=== PATIENT | female | born 1995 | race Caucasian/White ===

== ENCOUNTER 2017-05-06 17:44 | Emergency (ER) | payer SELFPAY ==
[2017-05-06] MEDS ORDERED: Morphine INJ* 4 MG/ML 1 ML SYRINGE IV ONE (18:19)
[2017-05-06] MEDS ORDERED: Ondansetron INJ* 2 MG/ML VIAL IV ONE (18:19)
[2017-05-06] MEDS ORDERED: NS 0.9% 1000 ML* 1,000 ML IV ONE (18:19)
[2017-05-06 18:49] LABS: Hematocrit 36 % (35-47); Mean Corpuscular HGB Conc 33 g/dl (31-36); Mean Corpuscular Hemoglobin 28 pg (27-31); Mean Corpuscular Volume 85 fL (80-97); Mean Platelet Volume 10 um3 (7.4-10.4); Red Blood Count 4.25 10^6/ul (4.0-5.4); Red Cell Distribution Width 14 % (10.5-15); White Blood Count 9.9 10^3/ul (3.5-10.8)
--- NOTE | 2017-05-06 19:07 | RAD ---
Indication: Right wrist pain 3 views of the wrist demonstrates fracture of the distal radius metaphysis. Slight dorsal angulation is noted. Fracture of the ulnar styloid process is noted. IMPRESSION: Fracture of the distal radius and ulnar styloid process with dorsal angulation.
[2017-05-06 19:15] LABS: ALT 12 U/L (7-52); AST 18 U/L (13-39); Albumin 3.9 g/dL (3.2-5.2); Alkaline Phosphatase 39 U/L (34-104); Anion Gap 9 mmol/L (2-11); BUN/Creatinine Ratio 12.9 (8-20); Blood Urea Nitrogen 8 mg/dL (6-24); CO2 Carbon Dioxide 22 mmol/L (22-32); Chloride 105 mmol/L (101-111); EGFR African American 159.5 (>60); Globulin 3.6 g/dL (2-4); Glucose 81 mg/dL (70-100); Lipase 14 U/L (11.0-82.0); Potassium 3.5 mmol/L (3.5-5.0); Sodium 136 mmol/L (133-145); Total Protein 7.5 g/dL (6.4-8.9)
[2017-05-06 19:39] LABS: Urine Bilirubin Negative (Negative); Urine Glucose Negative (Negative); Urine Nitrite Negative (Negative)
[2017-05-06] MEDS ORDERED: Iohexol 300* (CONTRAST) 10 ML SDV IV ONE (19:46)
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
[2017-05-06] MEDS ORDERED: Diazepam TAB(*) 5 MG PO ONE (20:36)
[2017-05-06] MEDS ORDERED: Ketorolac INJ* 30 MG/ML 1 ML VIAL IV PUSH ONE (20:36)
[2017-05-06] MEDS ORDERED: Ondansetron ODT TAB* 4 MG PO ONE (21:54)
[2017-05-06] MEDS ORDERED: oxyCODONE/Acetamin 5/325 MG* TAB PO ONE (21:55)
[2017-05-06 23:14] VITALS: BP 110/75
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
== END 2017-05-06 23:15 | disposition home or self-care (01) ==
LOC: ED 17:44
DX: S62.101A Fracture of unspecified carpal bone, right wrist, initial encounter for closed fracture (principal); S61.011A Laceration without foreign body of right thumb without damage to nail, initial encounter; R10.9 Unspecified abdominal pain; M25.531 Pain in right wrist; V49.9XXA Car occupant (driver) (passenger) injured in unspecified traffic accident, initial encounter; Y93.9 Activity, unspecified; Y92.9 Unspecified place or not applicable
CPT/HCPCS: 12002; 36415; 70450; 71260; 72125; 74177; 80053; 81003; 83690; 84702; 85025; 85610; 85730; 96374; 96375; 99282; A9270-GY; J1885; J2270; J2405; Q9967

== ENCOUNTER 2017-11-08 09:41 | Emergency (ER) | payer OTHER ==
[2017-11-08 09:52] VITALS: BP 114/72
--- NOTE | 2017-11-08 10:04 | UC ---
Abdominal Pain Female HPI - HPI Summary HPI Summary: left upper and now right lower abdpain---worsens after she eats---has been going on now for 6-7 days no fevers, no urinary sx, not like any stomach ache she has ever had before - History of Current Complaint Chief Complaint: UCAbdominalPain Stated Complaint: ABD PAIN Time Seen by Provider: 11/08/17 09:53 Hx Obtained From: Patient Hx Last Menstrual Period: iud ?: No Onset/Duration: Sudden Onset, Lasting Days - 7, Still Present Timing: Constant Severity Initially: Moderate Severity Currently: Moderate Location: Discrete At: RLQ, Discrete At: LUQ Radiates: No Character: Sharp Aggravating Factor(s): Food Alleviating Factor(s): Nothing Associated Signs and Symptoms: Positive: Nausea, Diarrhea Allergies/Adverse Reactions: Allergies Allergy/AdvReac Type Severity Reaction Status Date / Time No Known Allergies Allergy Verified 11/08/17 09:48 Home Medications: Home Medications NK [No Home Medications Reported] 11/08/17 [History Confirmed 11/08/17] PMH/Surg Hx/FS Hx/Imm Hx Previously Healthy: Yes - Surgical History Surgical History: None - Family History Known Family History: Positive: Cardiac Disease - Social History Occupation: Student Lives: With Family Alcohol Use: None Substance Use Type: Marijuana Smoking Status (MU): Never Smoked Tobacco Review of Systems Constitutional: Negative, Fatigue Skin: Negative Eyes: Negative ENT: Negative Respiratory: Negative Cardiovascular: Negative Gastrointestinal: Abdominal Pain, Diarrhea, Nausea Genitourinary: Negative Motor: Negative Neurovascular: Negative Musculoskeletal: Negative Neurological: Negative Psychological: Negative Is Patient Immunocompromised?: No All Other Systems Reviewed And Are Negative: Yes Physical Exam Triage Information Reviewed: Yes Appearance: Well-Appearing, No Pain Distress, Well-Nourished Vital Signs: Initial Vital Signs Temp 98 F 11/08/17 09:49 Pulse 101 11/08/17 09:49 Resp 20 11/08/17 09:49 BP 114/72 11/08/17 09:49 Pulse Ox 100 11/08/17 09:49 Vital Signs Reviewed: Yes Eye Exam: Normal Eyes: Positive: Conjunctiva Clear ENT Exam: Normal ENT: Positive: Normal ENT inspection, Hearing grossly normal, Pharynx normal, Nasal congestion, TMs normal, Uvula midline. Negative: Tonsillar swelling, Tonsillar exudate, Trismus, Muffled voice, Hoarse voice, Dental tenderness, Sinus tenderness Dental Exam: Normal Neck exam: Normal Neck: Positive: Supple, Nontender, No Lymphadenopathy Respiratory Exam: Normal Respiratory: Positive: Chest non-tender, Lungs clear, Normal breath sounds, No respiratory distress, No accessory muscle use Cardiovascular Exam: Normal Cardiovascular: Positive: RRR, No Murmur, Pulses Normal, Brisk Capillary Refill Abdominal Exam: Other Abdomen Description: Positive: No Organomegaly, Soft, McBurney's Point Tenderness, Peritoneal Signs, Other: - luq pain. Negative: CVA Tenderness (R), CVA Tenderness (L), Guarding Bowel Sounds: Positive: Present Musculoskeletal Exam: Normal Musculoskeletal: Positive: Strength Intact, ROM Intact, No Edema Neurological Exam: Normal Neurological: Positive: Alert, Muscle Tone Normal Psychological Exam: Normal Skin Exam: Normal Abd Pain Female Course/Dx - Course Course Of Treatment: npo transfer by private car to [facility] [place] for comprehensive abd.pain evaluation - Differential Dx/Diagnosis Provider Diagnoses: Acute Abdomen pain Discharge - Discharge Plan Condition: Stable Disposition: OTHER Discharge Disposition Comment: [facility] [place] Patient Education Materials: Abdominal Pain (ED) Referrals: Susan Bryson MD [Primary Care Provider] - Additional Instructions: Please report directly to the emergency department for comprehensive evaluation of your abdomen pain. Please do not have any thing else to eat or drink until evaluated by the emergency department provider
== END 2017-11-08 10:10 ==
LOC: UCEAST 09:41
DX: R10.31 Right lower quadrant pain (principal); R10.12 Left upper quadrant pain; R11.0 Nausea; R19.7 Diarrhea, unspecified; F12.90 Cannabis use, unspecified, uncomplicated
CPT/HCPCS: 99211; G0463

== ENCOUNTER 2017-11-08 10:29 | Day surgery (SDC) | payer OTHER ==
[2017-11-08 10:51] LABS: ABS Basophils 0.1 10^3/ul (0-0.2); ABS Eosinophils 0.1 10^3/ul (0-0.6); ABS Lymphocytes 2.2 10^3/ul (1.0-4.8); ABS Monocytes 0.6 10^3/ul (0-0.8); ABS Neutrophils 3.3 10^3/ul (1.5-7.7); ABS Nucleated RBC 0 10^3/ul; Eosinophil % 1.8 % (0-6); Hematocrit 39 % (35-47); Hemoglobin 13.1 g/dl (12.0-16.0); Lymphocyte % 35.2 % (25-47); Mean Corpuscular HGB Conc 34 g/dl (31-36); Mean Corpuscular Hemoglobin 29 pg (27-31); Mean Corpuscular Volume 85 fL (80-97); Mean Platelet Volume 9 um3 (7.4-10.4); Nucleated Red Blood Cells % 0.1; Platelet Count 232 10^3/ul (150-450); Red Blood Count 4.59 10^6/ul (4.0-5.4); Red Cell Distribution Width 14 % (10.5-15); White Blood Count 6.3 10^3/ul (3.5-10.8)
--- NOTE | 2017-11-08 11:13 | ED ---
Abdominal Pain/Female - HPI Summary HPI Summary: 22 female presents to ED accompanied by mother with complaints of abdominal pain that has been ongoing for the past week. Patient states she has noticed it to get much worse after eating or drinking. States pain is in the upper abdomen as long as the RLQ. Diffuse at times. Patient tried taking pepto bismal without relief. States it keeps her up at night. Describes pain to be sharp and shooting , constant and lasting for minutes to hours, ranging every time. Patient denies ever having pain like this in the past. No correlation to specific types of foods/drinks. Denies vaginal bleeding, discharge and odor. Denies urinary symptoms. Normal bowel movements. States she feels like bowel movement and urinating would relieve her pain however it doesn't. States "urination does not feel satisfying like she is fully emptying her bladder". No other urinary symptoms, such as burning, frequency or urgency. Denies vomiting and fever/ chills. Admits to feeling nauseated in the mornings. No PMHx, no FHx. No surgeries to abdomen. Denies any gallbladder/appendix history. No GERD history. Denies concern for STD, ovarian cyst or . Had IUD placed 6 weeks ago, experiencing some intermittent spotting from that procedure still. No other complaints and has not taken any medication. - History of Current Complaint Chief Complaint: EDAbdPain Stated Complaint: ABD PAIN, COMING FROM CC Hx Obtained From: Patient Hx Last Menstrual Period: iud ?: No Onset/Duration: Sudden Onset, Lasting Weeks - 1, Still Present, Worse Since Timing: Intermittent Episode Lasting - minutes to hours Severity Initially: Moderate Severity Currently: Mild Pain Intensity: 5 Pain Scale Used: 0-10 Numeric Location: Diffuse, Discrete At: RUQ, Discrete At: RLQ, Epigastric Radiates: No Character: Sharp Aggravating Factor(s): Food Alleviating Factor(s): Nothing Associated Signs and Symptoms: Positive: Nausea. Negative: Fever, Constipation , Blood in Stool, Urinary Symptoms, Vaginal Bleeding - spotting from recent IUD placement, Vaginal Discharge, Vomiting Allergies/Adverse Reactions: Allergies Allergy/AdvReac Type Severity Reaction Status Date / Time No Known Allergies Allergy Verified 11/08/17 09:48 PMH/Surg Hx/FS Hx/Imm Hx Endocrine/Hematology History: Denies: Hx Diabetes, Hx Thyroid Disease Cardiovascular History: Denies: Hx Hypercholesterolemia, Hx Hypertension, Hx Peripheral Vascular Disease Musculoskeletal History: Denies: Hx Arthritis, Hx Rheumatoid Arthritis, Hx Osteoporosis Sensory History: Reports: Hx Contacts or Glasses - GLASSES Denies: Hx Cataracts, Hx Glaucoma, Hx Hearing Aid Opthamlomology History: Reports: Hx Contacts or Glasses - GLASSES Denies: Hx Cataracts, Hx Glaucoma Neurological History: Denies: Hx Headaches, Hx Seizures, Hx Transient Ischemic Attacks (TIA) Psychiatric History: Denies: Hx Anxiety, Hx Depression - Surgical History Surgery Procedure, Year, and Place: none - Immunization History Immunizations Up to Date: Yes Infectious Disease History: No Infectious Disease History: Denies: Hx Clostridium Difficile, Hx Hepatitis, Hx Human Immunodeficiency Virus (HIV), Hx of Known/Suspected MRSA, Hx Shingles, Hx Tuberculosis, Hx Known/ Suspected VRE, Hx Known/Suspected VRSA, History Other Infectious Disease, Traveled Outside the [place] in Last 30 Days - Family History Known Family History: Positive: Cardiac Disease - Social History Alcohol Use: None Hx Substance Use: No Substance Use Type: Reports: Marijuana Hx Tobacco Use: No Smoking Status (MU): Never Smoked Tobacco Review of Systems Constitutional: Negative Cardiovascular: Negative Respiratory: Negative Positive: Abdominal Pain, Nausea Positive: other - vaginal spotting, IUD placement Skin: Negative Neurological: Negative All Other Systems Reviewed And Are Negative: Yes Physical Exam Triage Information Reviewed: Yes Vital Signs On Initial Exam: Initial Vitals Temp Pulse Resp BP Pulse Ox 97.9 F 77 15 122/67 100 11/08/17 10:31 11/08/17 10:31 11/08/17 10:31 11/08/17 10:31 11/08/17 10:31 Vital Signs Reviewed: Yes Appearance: Positive: Well-Appearing, No Pain Distress, Well-Nourished Skin: Positive: Warm, Skin Color Reflects Adequate Perfusion, Dry. Negative: Cold, Numb, Cyanosis @, Jaundiced, Pale, Erythema @ Head/Face: Positive: Normal Head/Face Inspection Eyes: Positive: Conjunctiva Clear ENT: Positive: Hearing grossly normal Neck: Positive: Supple, Nontender, No Lymphadenopathy Respiratory/Lung Sounds: Positive: Clear to Auscultation, Breath Sounds Present. Negative: Rales, Rhonchi, Wheezes Cardiovascular: Positive: Normal, RRR, Pulses are Symmetrical in both Upper and Lower Extremities. Negative: Murmur, Rub Abdomen Description: Positive: No Organomegaly, Soft, McBurney's Point Tenderness, Other: - tender on palpation of RLQ mild discomfort throughout rest of abdomen on palaption. positive psoas, negative rebound and rovsings. positive mc burneys. Negative: Bruit, CVA Tenderness (R), CVA Tenderness (L), Distended, Guarding Bowel Sounds: Positive: Present Pelvic Exam: Positive: other - deferred. Negative: tender adnexa, tender uterus Musculoskeletal: Positive: Normal, Strength/ROM Intact. Negative: Limited @, Interruption @, Pain @ Neurological: Positive: Normal, Sensory/Motor Intact, Alert, Oriented to Person Place, Time, CN Intact II-III, Reflexes Intact, NV Bundle Intact Distally, Normal Gait - Melania Coma Scale Coma Scale Total: 15 Diagnostics - Vital Signs Vital Signs Temp Pulse Resp BP Pulse Ox 11/08/17 10:31 97.9 F 77 15 122/67 100 - Laboratory Lab Results: Lab Results 11/08/17 11/08/17 11/08/17 Range/Units 10:45 10:45 10:45 WBC 6.3 (3.5-10.8) 10^3/ul RBC 4.59 (4.0-5.4) 10^6/ul Hgb 13.1 (12.0-16.0) g/dl Hct 39 (35-47) % MCV 85 (80-97) fL MCH 29 (27-31) pg MCHC 34 (31-36) g/dl RDW 14 (10.5-15) % Plt Count 232 (150-450) 10^3/ul MPV 9 (7.4-10.4) um3 Neut % (Auto) 52.5 (38-83) % Lymph % (Auto) 35.2 (25-47) % Creek % (Auto) 9.7 H (1-9) % Eos % (Auto) 1.8 (0-6) % Baso % (Auto) 0.8 (0-2) % Absolute Neuts (auto) 3.3 (1.5-7.7) 10^3/ul Absolute Lymphs (auto) 2.2 (1.0-4.8) 10^3/ul Absolute Monos (auto) 0.6 (0-0.8) 10^3/ul Absolute Eos (auto) 0.1 (0-0.6) 10^3/ul Absolute Basos (auto) 0.1 (0-0.2) 10^3/ul Absolute Nucleated RBC 0 10^3/ul Nucleated RBC % 0.1 Sodium 134 (133-145) mmol/L Potassium 3.9 (3.5-5.0) mmol/L Chloride 104 (101-111) mmol/L Carbon Dioxide 25 (22-32) mmol/L Anion Gap 5 (2-11) mmol/L BUN 9 (6-24) mg/dL Creatinine 0.56 (0.51-0.95) mg/dL Est GFR ( Amer) 177.5 (>60) Est GFR (Non-Af Amer) 138.0 (>60) BUN/Creatinine Ratio 16.1 (8-20) Glucose 90 (70-100) mg/dL Lactic Acid 0.5 (0.5-2.0) mmol/L Calcium 9.0 (8.6-10.3) mg/dL Total Bilirubin 0.50 (0.2-1.0) mg/dL AST 12 L (13-39) U/L ALT 11 (7-52) U/L Alkaline Phosphatase 43 (34-104) U/L C-Reactive Protein 44.68 H (< 5.00) mg/L Total Protein 7.6 (6.4-8.9) g/dL Albumin 4.4 (3.2-5.2) g/dL Globulin 3.2 (2-4) g/dL Albumin/Globulin Ratio 1.4 (1-3) Lipase 15 (11.0-82.0) U/L Beta HCG, Quant 0.79 mIU/mL Result Diagrams: 11/08/17 10:45 11/08/17 10:45 Lab Statement: Any lab studies that have been ordered have been reviewed, and results considered in the medical decision making process. - CT abd/pelvis CT Interpretation: Positive (See Comments) - FINDINGS CONSISTENT WITH ACUTE APPENDICITIS. CT Interpretation Completed By: Radiologist - and myself Re-Evaluation - Re-Evaluation First Eval Re-Evaluation Time: 01:15 Change: Improved - pain was 5/10 had relief after pain medication, would not like anymore at this time Second Eval Re-Evaluation Time: 14:15 Change: Unchanged - still feeling ok, updated on plan and imaging/lab results. both mother and daughter are aware Abdominal Pain Fem Course/Dx - Course Course Of Treatment: labs obtained and unremarkable other than elevated CRP. patient comfortable currently no pain medication or antiemetic given. normal vitals and afebrile. Urinalysis obtained and negative. negative HCG. normal PE findings other than pain on palpation of abdomen. due to symptoms/complaints and PE findings obtained CT of abd/pelvis to rule out several etiologies, cholelithiasis, appendicitis, ovarian cyst, etc. Did show acute appendicitis and incidental right ovarian cyst. given morphine for pain as increased throughout visit. Spoke with Dr Chiu at 2:10pm who would consult and accepted patient for OR and admission. - Diagnoses Differential Diagnosis: Positive: Appendicitis, Constipation, Ovarian Cyst Provider Diagnoses: Appendicitis - Provider Notifications Discussed Care Of Patient With: Dr Chiu Time Discussed With Above Provider: 14:10 Instructed by Provider To: Admit As Inpatient - going to OR Discharge - Discharge Plan Condition: Stable Disposition: ADMITTED TO [facility] Referrals: Susan Bryson MD [Primary Care Provider] -
[2017-11-08 12:01] LABS: Urine Appearance Clear; Urine Blood Negative (Negative); Urine Color Straw; Urine Ketones Negative (Negative); Urine Protein Negative (Negative); Urine Specific Gravity 1.006 (1.010-1.030); Urine Urobilinogen Negative (Negative)
[2017-11-08] MEDS ORDERED: Iohexol 300* (CONTRAST) 10 ML SDV IV ONE (12:24)
[2017-11-08] MEDS ORDERED: Morphine INJ* 2 MG/ML 1 ML CARPUJECT IV ONE ×2 (12:39→14:26)
[2017-11-08] MEDS ORDERED: Morphine INJ* 2 MG/ML 1 ML SYRINGE (TWO MG - NEW SYRINGE VERSION) ONE (12:44)
--- NOTE | 2017-11-08 13:59 | RAD ---
INDICATION: Right upper and lower quadrant pain and epigastric pain. COMPARISON: Comparison is made with a prior CT of the abdomen and pelvis from May 06, 2017. TECHNIQUE: A CT scan of the abdomen and pelvis was performed with intravenous and oral contrast following intravenous injection of 91 ml of Omnipaque 300 nonionic contrast. Contiguous axial sections were obtained from the lung bases through the symphysis pubis. Images were reconstructed in the coronal and sagittal planes. FINDINGS: The lung bases are clear. No pleural effusion is present. The liver and spleen are within normal limits in size without significant focal abnormality. No calcified gallstones are seen. The pancreas appears to be within normal limits in size. The kidneys and adrenal glands are normal in size. No hydronephrosis is seen. No significant focal renal abnormality is seen. The aorta is normal in caliber and demonstrates homogeneous contrast opacification. No significant enlarged retroperitoneal lymph nodes are seen. The stomach, small and large bowel appear nondistended. The appendix is enlarged measuring 1.2 cm in diameter. There is stranding in the surrounding fat and mild edema at the bases of the cecum. These findings are all consistent with acute appendicitis. No abscess is seen. The uterus is anteverted and normal in size. There is a T-shaped IUD present. The uterus is tilted toward the left side. There is a 2.7 x 2.3 cm right ovarian cyst present. There is a trace amount of free intraperitoneal fluid in the cul-de-sac. No free intraperitoneal air is seen. No significant focal osseous abnormality is seen. IMPRESSION: FINDINGS CONSISTENT WITH ACUTE APPENDICITIS.
[2017-11-08] MEDS ORDERED: Lidocaine 2% PF * 5 ML VIAL ONE (15:34)
[2017-11-08] MEDS ORDERED: fentaNYL* 50 MCG/ML 2 ML VIAL (100 MCG VIAL) ONE ×2 (15:34→17:40)
[2017-11-08] MEDS ORDERED: Mivacurium Chloride* 20 MG/10 ML VIAL IV ONE (15:37)
[2017-11-08] MEDS ORDERED: oxyCODONE/Acetamin 5/325 MG* TAB PO PRN (15:42)
[2017-11-08] MEDS ORDERED: HYDROcodone/ACETAMIN 5-325 MG* 1 TAB PO PRN (15:42)
[2017-11-08] MEDS ORDERED: Naloxone* 0.4 MG/ML 1 ML VIAL IV PRN (15:42)
[2017-11-08] MEDS ORDERED: DiMENhydriNATE IV* 50 MG/ML VIAL IV PUSH PRN (15:42)
[2017-11-08] MEDS ORDERED: PROCHLORPERAZINE INJ 5 MG/ML 2 ML VIAL IV PRN (15:42)
[2017-11-08] MEDS ORDERED: Sodium Citrate/Citric Acid* 15 ML UDC PO ONE (15:43)
[2017-11-08] MEDS ORDERED: Sodium Citrate/Citric Acid* 15 ML UDC ONE (15:48)
[2017-11-08] MEDS ORDERED: Bupivacaine 0.25% SDV* 30 ML ONE (15:51)
[2017-11-08] MEDS ORDERED: metroNIDAZOLE IV 500 MG/100ML* 500 MG/100 ML BAG IVPB ONE (16:17)
[2017-11-08] MEDS ORDERED: ceFAZolin 2 GM PREMIX (*) 2 GM/50 ML BAG IVPB ONE (16:17)
[2017-11-08] MEDS ORDERED: Ketorolac INJ* 30 MG/ML 1 ML VIAL ONE (16:36)
[2017-11-08] MEDS ORDERED: Ondansetron INJ* 2 MG/ML VIAL ONE (16:41)
[2017-11-08] MEDS ORDERED: Dexamethasone IV* 4 MG/ML 1 ML (4 MG) ONE (16:41)
--- NOTE | 2017-11-08 17:11 | BRIEFOPN ---
Brief Operative Note - Surgery Procedures: Procedures Pre-OP Diagnoses: acute appendicitis Post-op Diagnosis: same Procedure: Laparoscopic appendectomy Surgeon: Aram Asst: none Anethesia: ZELDA Paniagua EBL: minimal IVF: minimal crystalloid Specimen: appendix Drains: none
[2017-11-08] MEDS ORDERED: oxyCODONE/Acetamin 5/325 MG* TAB ONE (17:40)
[2017-11-08] MEDS: fentaNYL* 50 MCG/ML 2 ML VIAL (100 MCG VIAL) IV PRN ×2 (17:40→17:56)
[2017-11-08] MEDS ORDERED: PROCHLORPERAZINE INJ 5 MG/ML 2 ML VIAL ONE (17:43)
[2017-11-08] MEDS ORDERED: DiMENhydriNATE IV* 50 MG/ML VIAL ONE (17:50)
[2017-11-08] MEDS ORDERED: Scopolamine 1.5 mg* PATCH ONE ×2 (17:57→17:58)
[2017-11-08] MEDS ORDERED: Scopolamine PATCH Remove* 1 NOTE MISC PATCH OFF SCH (18:00)
[2017-11-08] MEDS ORDERED: Scopolamine 1.5 mg* PATCH TRANSDERM SCH (18:00)
[2017-11-08 18:20] VITALS: BP 113/69
--- NOTE | 2017-11-09 01:58 | HP ---
CC: [facility]; Dr. Susan Bryson * HISTORY AND PHYSICAL: DATE OF ADMISSION: 11/08/17 HISTORY OF PRESENT ILLNESS: Ms. Booth is a 22-year-old female, who presented to the emergency room at the request of her mother after suffering with almost 7 days of right lower quadrant abdominal pain. The patient states that she had decreased appetite and persistent pain, has been sharp in quality and at times worsening over the course of the week. She denies any associated nausea, but again some anorexia. No change in bowel habits. Mild dysuria described as a pulling of the bladder as she voids. The patient denies any previous similar symptoms. PAST MEDICAL HISTORY: None. PAST SURGICAL HISTORY: Ankle surgery. MEDICATIONS: None. ALLERGIES: No known drug allergies. FAMILY HISTORY: Noncontributory. No history of ulcerative colitis or Crohn's disease. SOCIAL HISTORY: student ministries director. Does not smoke or drink. She is sexually active, has an IUD in place. REVIEW OF SYSTEMS: No fevers, no chills, no significant weight loss or weight gain. No shortness of breath. No chest pain. No bleeding or clotting disorders. Abdominal complaints as described. Dysuria as described. No change in bowel habits. Good exercise tolerance. No endocrine disorders. No neurologic disorders. The patient never had colonoscopy. PHYSICAL EXAMINATION VITAL SIGNS: She is afebrile. Vital signs are stable. Alert and oriented x3. No apparent distress. HEENT: Head is normocephalic, atraumatic. Sclerae anicteric. Mucous membranes are moist. NECK: No lymphadenopathy. LUNGS: Clear to auscultation bilaterally. ABDOMEN: Soft, nondistended, tender in the right lower quadrant, suprapubic region. Tenderness to percussion at the right lower quadrant. Negative rebound , negative Rovsing. Negative psoas sign. No CVA tenderness. EXTREMITIES: Within normal limits. RECTAL: Not performed. LABORATORY DATA: Labs were performed, these were reviewed and showed a normal white count at 6.3, elevated CRP at 45. Urinalysis within normal limits. The patient underwent CT scan of the abdomen and pelvis. These images as well as the report were reviewed. She had largely dilated appendix in the mid abdomen with inflammatory changes around it consistent with acute appendicitis. No abscess is seen. IMPRESSION: Acute appendicitis with multi-day history. RECOMMENDATIONS: My recommendation is diagnostic laparoscopy and appendectomy. I outlined the details of the procedure to Ms. Booth and to her family member going over the risks, benefits and alternatives. They agreed to proceed. We spoke about the possible complications which included but not limited to bleeding, infection, bowel injury, bladder injury and need for additional procedures, abscess formation and need for open procedure. Consent was signed. The patient is marked. I described to the patient due to the multi-day history of this that it may be a prolonged dissection requiring an open procedure to do a full removal of the appendix. They are aware of this. They understand nonoperative management may lead to perforation and their questions were answered. PLAN: IV antibiotics, OR, possible admission for overnight versus discharge home depending on the operative findings. [id number]/[facility] #: [id number] GRIS
--- NOTE | 2017-11-09 13:51 | OP ---
CC: Dr. Susan Bryson * DATE OF PROCEDURE: 11/08/17 - [facility] DATE OF : [birth year] SURGEON: Kvng Chiu MD CUP MACHINE OPERATOR: None. ANESTHESIOLOGIST: Jose Paniagua MD ANESTHESIA: General anesthesia. PRE-OP DIAGNOSIS: Acute appendicitis. POST-OP DIAGNOSIS: Acute appendicitis. OPERATIVE PROCEDURE: Laparoscopic appendectomy. ESTIMATED BLOOD LOSS: Minimal blood loss. FLUIDS: Minimal crystalloid fluid given. SPECIMEN: Appendix, nonperforated. DRAINS: None. COUNTS: Lap pad count, instrument count correct at the end of the procedure. DESCRIPTION OF PROCEDURE: The patient was identified in the preoperative area, marked, brought to the operating room, placed on the operating table in supine position. Preoperative antibiotics were given. Sequential devices were placed on bilateral lower extremities. General anesthesia was induced. The patient's abdomen was prepped and draped in a standard surgical fashion. A time-out was performed. The folds of the umbilicus were elevated anteriorly, and a Veress needle was inserted into the abdominal cavity, which was then allowed to insufflate to a pressure of 15 mmHg. The patient tolerated the insufflation well. An infraumbilical incision was made and a 12-mm trocar was inserted through this. Laparoscope was inserted through this and there was no evidence of injury from the trocar insertion. Veress needle was then removed and abdomen was inspected. It showed a dilated appendix on the right side. No free fluid. Bowel was nondilated. Additional trocars were then placed in the following position: A 5 mm in the suprapubic area and a 5 mm in the left lower quadrant. The appendix was identified, grasped, and the base of the appendix cleared off lateral attachments with electrocautery and sharp dissection. A window was made at the base of the appendix through healthy tissue and a 45-mm garcia NUVIA stapling device was fired across this through healthy tissue right at the base of the cecum. The mesoappendix was then cleared off its overlying peritoneum to allow for better stapling and a 45-mm plata NUVIA stapling device was fired across this. The appendix was then placed in an endoscopic retrieval bag and placed off to the side. Review of staple line showed some oozing, gauze was inserted and touched up along the area of the staple line. This showed hemostasis. The blood was drawn off in the gauze, which was removed. There were no enteric contents or bleeding. Review of the pelvis showed scant free fluid. Normal right ovary. Table was placed back into neutral position. The appendix in the endoscopic retrieval bag was then brought out through the umbilical port. The port was removed as well and 0 Vicryl suture using Endo Close device was utilized to reapproximate the fascia. The abdomen was allowed to collapse. The additional trocars were removed and all 3 skin incisions were reapproximated with 4-0 Monocryl subcuticular sutures followed by sterile dressing. The patient tolerated the procedure well, was woken up in the OR, and transferred to the PACU in stable condition. [id number]/[facility] #: [id number] GRIS
== END 2017-11-08 19:15 | disposition home or self-care (01) ==
LOC: ED 10:29 → OR 15:57
PROVIDERS: ATTEND Surgery
DX: K35.80 Unspecified acute appendicitis (principal); R10.31 Right lower quadrant pain; R10.32 Left lower quadrant pain; R10.13 Epigastric pain; R30.0 Dysuria; Z97.5 Presence of (intrauterine) contraceptive device
CPT/HCPCS: 36415; 74177; 80053; 81003; 81015; 83605; 83690; 84702; 85025; 86140; 87086; 88304; 99283; A9270-GY; C1776; J0690; J0780; J1100; J1240; J1885; J2270; J2405; J3010; J3490; Q9967

== ENCOUNTER 2018-03-13 10:49 | Emergency (ER) | payer OTHER ==
[2018-03-13 10:59] VITALS: BP 116/70
[2018-03-13] MEDS ORDERED: Ketorolac INJ* 60 MG/2 ML VIAL IM ONE (11:08)
--- NOTE | 2018-03-13 11:32 | UC ---
Amos Skaggs Julia, scribed for Abraham Means MD on 03/13/18 at 1108 . Dental HPI - HPI Summary HPI Summary: This patient is a 22 year old F presenting to [facility] with a chief complaint of intermittent jaw pain in the left TMJ area. Patient has a history of these symptoms but the pain has significantly increased today. Symptoms typically exacerbated by talking or chewing. Pain is 7/10 in severity. Patient has no other complaints. - History of Current Complaint Chief Complaint: UCGeneralIllness Stated Complaint: JAW PAIN Time Seen by Provider: 03/13/18 11:01 Hx Obtained From: Patient Hx Last Menstrual Period: iud Onset/Duration: Gradual Onset, Worse Since - today Pain Intensity: 7 Pain Scale Used: 0-10 Numeric Aggravating Factor(s): Other - talking and chewing Related History: TMJ Dysfunction - Allergies/Home Medications Allergies/Adverse Reactions: Allergies Allergy/AdvReac Type Severity Reaction Status Date / Time No Known Allergies Allergy Verified 03/13/18 10:59 PMH/Surg Hx/FS Hx/Imm Hx Previously Healthy: Yes - Surgical History Surgical History: Yes Surgery Procedure, Year, and Place: foot surgery and appy - Family History Known Family History: Positive: Cardiac Disease - Social History Alcohol Use: None Substance Use Type: Marijuana Smoking Status (MU): Never Smoked Tobacco Review of Systems Constitutional: Negative ENT: Dental Pain - left jaw pain All Other Systems Reviewed And Are Negative: Yes Physical Exam - Summary Physical Exam Summary: VITAL SIGNS: Reviewed. GENERAL: Patient is a well developed and nourished female who is lying comfortable in the stretcher. Patient is not in any acute respiratory distress. HEAD AND FACE: Normocephalic, L TMJ tenderness EYES: PERRLA, EOMI x 2. EARS: Hearing grossly intact. Normal. MOUTH: Oropharynx within normal limits. L TMJ tenderness, Teeth are normal NECK: Supple, trachea is midline, no adenopathy, no JVD, no carotid bruit. CHEST: Symmetric, no tenderness at palpation LUNGS: Clear to auscultation bilaterally. No wheezing or crackles. CVS: Regular rate and rhythm, S1 and S2 present, no murmurs or gallops appreciated. ABDOMEN: Soft, non-tender. Bowel sounds are normal. No abdominal abnormal pulsations. EXTREMITIES: Full ROM in all major joints, no edema, no cyanosis or clubbing. NEURO: Alert and oriented x 3. No acute neurological deficits. Speech is normal and follows commands. SKIN: Dry and warm Triage Information Reviewed: Yes Vital Signs: Initial Vital Signs Temp 98.6 F 03/13/18 10:56 Pulse 80 03/13/18 10:56 Resp 17 03/13/18 10:56 BP 116/70 03/13/18 10:56 Pulse Ox 100 03/13/18 10:56 Vital Signs Reviewed: Yes Dental Complaint Course/Dx - Course Course Of Treatment: This patient is a 22 year old F presenting to [facility] with a chief complaint of intermittent jaw pain in the left TMJ area. Patient has a history of these symptoms but the pain has significantly increased today. Symptoms typically exacerbated by talking or chewing. Pain is 7/10 in severity. Patient has no other complaints. Patient may be developing TMJ syndrome. Patient will be given Toradol for pain. Patient is given a prescription for Naproxen. I discussed all the findings with the patient. Plan of care was discussed with the patient, and patient understands and agrees. Patient agrees to follow up with her dentist. All questions were answered to patient satisfaction. There were no further complaints or concerns. - Differential Dx/Diagnosis Provider Diagnoses: TMJ Discharge - Sign-Out/Discharge Documenting (check all that apply): Discharge/Admit/Transfer - Discharge Plan Condition: Stable Disposition: HOME Prescriptions: Naproxen [Naproxen 500 mg tab] 500 mg PO BID #30 tablet Patient Education Materials: Temporomandibular Disorder (ED) Referrals: Susan Bryson MD [Primary Care Provider] - Additional Instructions: Take medications as instructed Increase your fluid intake Return to the if symptoms worsen - Billing Disposition and Condition Condition: STABLE Disposition: HOME The documentation as recorded by the Amos flowers Julia accurately reflects the service I personally performed and the decisions made by , Abraham Means MD.
== END 2018-03-13 11:45 | disposition home or self-care (01) ==
LOC: UCEAST 10:49
DX: M26.609 Unspecified temporomandibular joint disorder, unspecified side (principal)
CPT/HCPCS: 90472; 96372; 99212; G0463; J1885

== ENCOUNTER 2018-11-08 18:54 | Emergency (ER) | payer SELFPAY ==
--- OUTSIDE RECORDS SUMMARY | 2018-11-08 19:08 | XMS REPORT | Continuity of Care Document ---
:1995 External Reference #:[id number] Author Name Amina Carpenter O.D. Address [address] [place] [address] Care Team Providers Name Role Phone Susan Bryson M.D. Primary Care Physician Unavailable Payers Type Date Identification Numbers Payment Provider Subscriber Policy Number: [id number] [employer] P[employer]/Pos/Epo/Nap Michele Hinojosa Leobardo PayID: [id number] [address] [place] [address] Advance Directives Description No Information Available Problems Date Description Provider Status Onset: 10/19/2018 Myopia Amina Carpenter O.D. Active Onset: 10/19/2018 Regular astigmatism Amina Carpenter O.D. Active Onset: 10/19/2018 Presbyopia Amina Carpenter O.D. Active Family History Date Family Member(s) Problem(s) Comments Father No Current Problems Mother No Current Problems lasik Grandmother Cataract Social History Type Date Description Comments Sex Unknown Marital Status Single Occupation Student Work Status Student, Not Employed ETOH Use Occasionally consumes alcohol Tobacco Use Start: Unknown Patient has never smoked Recreational Drug Use Denies Drug Use Smoking Status Reviewed: 10/19/18 Patient has never smoked Allergies, Adverse Reactions, Alerts Description No Known Drug Allergies Medications Description No Active Medications Immunizations Description No Information Available Vital Signs Description No Information Available Results Description No Information Available Procedures Description No Information Available Encounters Description No Information Available Plan of Treatment 10/19/2018 - Amina Carpenter O.D.H52.13 Myopia, bilateralComments:Smoking can increase the risk of developing or worsening any eye related disease, as well as affect your overall health. If you are a smoker, we strongly recommend that you quit.If you are not a smoker, we strongly recommend that you do not start. You have Myopia, or near sightedness. I have given you a prescription for glasses.Follow up:2 Year Follow Up You can expect to have your eyes dilated at your next visit. If Dr. Carpenter orders any additional testing, it may require extra time. We recommend that you bring sunglasses, as dilation drops often make you light sensitive until they wear off. We always recommend you bring someone to drive you home if you are uncomfortable driving with your eyes dilated. If you have any questions before your next visit, feel free to call our office at .h52.223 Regular astigmatism, bilateralComments: Astigmatism is a common vision condition that happens when a person's cornea is not symmetrical. Dr. Carpenter has given you a prescription to correct for this.
--- OUTSIDE RECORDS SUMMARY | 2018-11-08 19:08 | XMS REPORT | Continuity of Care Document ---
:1995 External Reference #:[id number] Author Name Nagi Alex Care Team Providers Name Role Phone Meenakshi Ham MD Primary Care Physician Unavailable Payers Type Date Identification Numbers Payment Provider Subscriber Policy Number: [id number] [employer] Michele Loveter PayID: [id number] [address] [place] [address] Expires: 2017 Policy Number: [id number] [employer] Naveed Booth Onset: 2017 Group Number: [id number] [address] Group Name: [phone] [place] [address] PayID: [id number] Advance Directives Description No Information Available Problems Date Description Provider Status Onset: 11/05/2016 Long-term current use of hormonal Alfie Alba NP Active contraceptive Family History Date Family Member(s) Problem(s) Comments General Cancer Father No Current Problems Mother No Current Problems Social History Type Date Description Comments Sex Unknown Marital Status Significant Other boyfriend Lives With Family at school has a roommate Occupation Student waitresses on breaks Nursing school ETOH Use Never used alcohol Tobacco Use Start: Unknown Patient has never smoked Recreational Drug Use Denies Drug Use Smoking Status Reviewed: 10/19/18 Patient has never smoked Exercise Type/Frequency Exercises regularly Allergies, Adverse Reactions, Alerts Date Description Reaction Status Severity Comments 03/06/2017 Azithromycin Nausea and Vomiting Active 02/20/2014 NKDA Inactive Medications Medication Date Status Form Strength Qnty SIG Indications Ordering Provider Cyclobenzaprine 10/19 Active Tablets 10mg 30tab 1 by mouth M26.602 Meenakshi s at night MD Jitendra Mirena (52 MG) Active IUD 20mcg/24H Unknown /0000 R Breo Ellipta 08/05 Hx Aerosol 100-25mcg 60uni 1 puff Gregoria /2016 /Inh ts inhaled MD Eli - daily 10/18 Percocet 05/14 Hx Tablets 5-325mg 20tab 1 by mouth s every 6 Sen, - hour as M.D. 06/17 pain Zofran 05/14 Hx Tablets 4mg 14tab 1 po every s 6 hr as Sen, - needed for M.D. 10/18 nausea Xulane 04/24 Hx Patches 150-35mcg 6unit apply 1 Weekly /24HR s patch Adelaide, - every wks M.D. 10/18 x 3 wks , off x 1 week Sophy Allergy 04/09 Hx Tablets 180mg 30tab 1 by mouth J30.9 Susan s every day Adelaide, - M.D. 10/18 Fluticasone 04/09 Hx Suspension 50mcg/Act 1unit 1 squirts J30.9 Susan Propionate s each Bryson, - nostril M.D. 10/18 Ventolin HFA 03/06 Hx Aerosol 108(90Bas 1unit 1 to 2 e) s inhalation MD Eli - mcg/Act s every 4 10/18 hours needed Macrobid 11/05 Hx Capsules 100mg 6caps 1 cap by N39.0 Alfie mouth q12 [place], MICROBIOLOGY LAB TECHNICIAN - hours x 11/11 3d Oxycodone HCL 09/12 Hx Tablets 5mg 60tab 1-2 tabs s po q 3 -6 Lee, - hours prn M.D. 12/04 No Active 02/20 Hx Unknown Medications /2013 - 02/23 Naproxen Hx Tablets 500mg 60tab 1 by mouth Unknown /0000 s twice a - day as 04/24 needed /0166 Xulane Patch Hx 10uni 1 patch ts once Bryson, - weekly X 3 M.D. 04/24 wks, off 1 week Percocet Hx Unknown /0000 - 05/04 Zocor Hx Unknown /0000 - 05/06 Zofran Hx Unknown /0000 - 05/04 Medications Administered in Office Medication Date Status Form Strength Qnty SIG Indications Ordering Provider PPD Administered Injection Nurse Visit 8 C PPD Administered Injection Alfie Alba NP Immunizations CPT Code Status Date Vaccine Lot # [id number] Given 08/31/2017 Influenza Virus Vaccine, Quadrivalent, Split, Preservative Free [id number] Given 11/05/2016 Influenza Virus Vaccine, Quadrivalent, Split wh696oa Virus, Im Use Vital Signs Date Vital Result Comment 10/19/2018 11:10am Height 67 inches 5'7" Weight 149.00 lb Heart Rate 65 /min BP Systolic Sitting 116 mmHg BP Diastolic Sitting 74 mmHg Body Temperature 97.8 F Pain Level 5 jaw O2 % BldC Oximetry 98 % BMI (Body Mass Index) 23.3 kg/m2 11/12/2017 9:13am Height 67 inches 5'7" Weight 154.00 lb Heart Rate 68 /min BP Systolic Sitting 122 mmHg BP Diastolic Sitting 70 mmHg Body Temperature 97.7 F O2 % BldC Oximetry 98 % BMI (Body Mass Index) 24.1 kg/m2 06/18/2017 9:43am Height 67 inches 5'7" Weight 168.00 lb Heart Rate 68 /min BP Systolic 118 mmHg BP Diastolic 62 mmHg Respiratory Rate 16 /min Body Temperature 98.0 F Pain Level 0 BMI (Body Mass Index) 26.3 kg/m2 Height Percentile 3 % Weight Percentile <3rd 06/04/2017 9:34am Height 67 inches 5'7" Weight 168.00 lb Heart Rate 66 /min BP Systolic 110 mmHg BP Diastolic 60 mmHg Body Temperature 98.4 F Pain Level 0 BMI (Body Mass Index) 26.3 kg/m2 05/14/2017 2:39pm Height 67 inches 5'7" Weight 168.00 lb Heart Rate 72 /min Respiratory Rate 17 /min Pain Level 3 BMI (Body Mass Index) 26.3 kg/m2 05/07/2017 1:49pm Height 67 inches 5'7" Weight 168.00 lb Heart Rate 68 /min BP Systolic 124 mmHg BP Diastolic 76 mmHg Respiratory Rate 16 /min Body Temperature 97.7 F Pain Level 4 BMI (Body Mass Index) 26.3 kg/m2 04/17/2017 7:07am Weight 168.00 lb Heart Rate 74 /min BP Systolic Sitting 86 mmHg BP Diastolic Sitting 62 mmHg Respiratory Rate 20 /min Body Temperature 97.9 F O2 % BldC Oximetry 98 % 04/09/2017 10:37am Weight 167.00 lb Heart Rate 84 /min BP Systolic 112 mmHg BP Diastolic 62 mmHg Body Temperature 97.3 F O2 % BldC Oximetry 98 % 03/06/2017 11:26am Weight 177.00 lb Heart Rate 80 /min BP Systolic Sitting 98 mmHg BP Diastolic Sitting 78 mmHg Body Temperature 97.9 F 11/05/2016 9:40am Height 66 inches 5'6" Weight 170.38 lb Heart Rate 74 /min BP Systolic Sitting 112 mmHg BP Diastolic Sitting 80 mmHg Body Temperature 98.0 F O2 % BldC Oximetry 98 % BMI (Body Mass Index) 27.5 kg/m2 06/10/2016 3:59pm Height 66 inches 5'6" Weight 160.00 lb Heart Rate 60 /min Respiratory Rate 16 /min Pain Level 0 BMI (Body Mass Index) 25.8 kg/m2 Blood Pressure Percentile 0 % Height Percentile 75 % Weight Percentile 89th 04/25/2016 10:04am Height 66 inches 5'6" Pain Level 0 Blood Pressure Percentile 0 % Height Percentile 75 % 08/14/2015 2:05pm Height 66 inches 5'6" Weight 130.00 lb Pain Level 0 BMI (Body Mass Index) 21.0 kg/m2 Height Percentile 76 % Weight Percentile 61st 02/20/2015 3:15pm Height 66 inches 5'6" Weight 130.00 lb Pain Level 0 BMI (Body Mass Index) 21.0 kg/m2 Height Percentile 76 % Weight Percentile 63rd 12/05/2014 4:21pm Height 66 inches 5'6" Weight 131.00 lb Pain Level 5 BMI (Body Mass Index) 21.1 kg/m2 Blood Pressure Percentile 0 % Height Percentile 76 % Weight Percentile 66th 11/10/2014 9:17am Height 66 inches 5'6" Weight 131.00 lb BMI (Body Mass Index) 21.1 kg/m2 Blood Pressure Percentile 0 % Height Percentile 77 % Weight Percentile 66th 10/31/2014 4:13pm Height 66 inches 5'6" Weight 131.00 lb Pain Level 2 BMI (Body Mass Index) 21.1 kg/m2 Height Percentile 77 % Weight Percentile 66th 10/17/2014 3:55pm Height 66 inches 5'6" Weight 130.00 lb Pain Level 1 BMI (Body Mass Index) 21.0 kg/m2 Blood Pressure Percentile 0 % Height Percentile 77 % Weight Percentile 65th 10/03/2014 4:09pm Height 66 inches 5'6" Weight 130.00 lb Body Temperature 97.3 F BMI (Body Mass Index) 21.0 kg/m2 Blood Pressure Percentile 0 % Height Percentile 77 % Weight Percentile 65th 09/12/2014 4:03pm Height 66 inches 5'6" Weight 130.00 lb Heart Rate 78 /min BP Systolic 103 mmHg BP Diastolic 73 mmHg BMI (Body Mass Index) 21.0 kg/m2 Blood Pressure Percentile 16 % Height Percentile 77 % Weight Percentile 65th 04/13/2014 10:06am Height 65 inches 5'5" Weight 125.00 lb Heart Rate 76 /min BP Systolic 96 mmHg BP Diastolic 71 mmHg BMI (Body Mass Index) 20.8 kg/m2 Blood Pressure Percentile 5 % Height Percentile 64 % Weight Percentile 58th 02/23/2014 2:53pm Height 65 inches 5'5" Weight 125.00 lb Heart Rate 75 /min BP Systolic 98 mmHg BP Diastolic 72 mmHg BMI (Body Mass Index) 20.8 kg/m2 Blood Pressure Percentile 8 % Height Percentile 64 % Weight Percentile 58th Results Test Date Facility Test Result H/L Range Note Laboratory test 11/08/2017 [facility] Surgical SEE RESULT [address] [place] [address] [phone] Urinalysis 11/08/2017 [facility] Urine Color Straw Profile [address] [place] [address] [phone] Urine Appearance Clear Urine Specific [place] 1.006 Low 1.010-1.030 Urine pH 7.0 N 5-9 Urine Urobilinogen Negative Negative Urine Ketones Negative Negative Urine Protein Negative Negative Urine Leukocytes Trace Abnormal Negative Urine Blood Negative Negative Urine Nitrite Negative Negative Urine Bilirubin Negative Negative Urine Glucose Negative Negative Urine White Blood Cell Trace(0-5/hpf) Absent Urine Red Blood Cell Absent Absent Urine Bacteria Absent Absent Urine Squamous Epithelial Cell Present Abnormal Absent Urine Culture And 11/08/2017 [facility] Urine Culture SEE RESULT [address] [place] [address] [phone] Laboratory test 11/08/2017 [facility] Lactic Acid 0.5 mmol/L N 0.5-2. [address] 0 [place] [address] [phone] CBC Auto Diff 11/08/2017 [facility] White Blood 6.3 10^3/uL N 3.5-[address] Count .8 [place] [address] [phone] Red Blood Count 4.59 10^6/uL N 4.0-5.4 Hemoglobin 13.1 g/dL N 12.0-16.0 Hematocrit 39 % N 35-47 Mean Corpuscular Volume 85 fL N 80-97 Mean Corpuscular Hemoglobin 29 pg N 27-31 Mean Corpuscular HGB Conc 34 g/dL N 31-36 Red Cell Distribution Width 14 % N 10.5-15 Platelet Count 232 10^3/uL N 150-450 Mean Platelet Volume 9 um3 N 7.4-10.4 Abs Neutrophils 3.3 10^3/uL N 1.5-7.7 Abs Lymphocytes 2.2 10^3/uL N 1.0-4.8 Abs Monocytes 0.6 10^3/uL N 0-0.8 Abs Eosinophils 0.1 10^3/uL N 0-0.6 Abs Basophils 0.1 10^3/uL N 0-0.2 Abs Nucleated RBC 0 10^3/uL Granulocyte % 52.5 % N 38-83 Lymphocyte % 35.2 % N 25-47 Monocyte % 9.7 % High 1-9 Eosinophil % 1.8 % N 0-6 Basophil % 0.8 % N 0-2 Nucleated Red Blood Cells % 0.1 Comp Metabolic Panel 11/08/2017 [facility] Sodium 134 mmol/L N 133-[address] [place] [address] [phone] Potassium 3.9 mmol/L N 3.5-5.0 Chloride 104 mmol/L N 101-111 Co2 Carbon Dioxide 25 mmol/L N 22-32 Anion Gap 5 mmol/L N 2-11 Glucose 90 mg/dL N 70-100 Blood Urea Nitrogen 9 mg/dL N 6-24 Creatinine 0.56 mg/dL N 0.51-0.95 BUN/Creatinine Ratio 16.1 N 8-20 Calcium 9.0 mg/dL N 8.6-10.3 Total Protein 7.6 g/dL N 6.4-8.9 Albumin 4.4 g/dL N 3.2-5.2 Globulin 3.2 g/dL N 2-4 Albumin/Globulin Ratio 1.4 N 1-3 Total Bilirubin 0.50 mg/dL N 0.2-1.0 Alkaline Phosphatase 43 U/L N 34-104 Alt 11 U/L N 7-52 Ast 12 U/L Low 13-39 Egfr Non- 138.0 >60 Egfr 177.5 >60 4 Laboratory test finding 11/08/2017 [facility] Lipase 15 U/L N 11.0-82.0 [address] [place] [address] [phone] C Reactive Protein 44.68 mg/L High < 5.00 5 HCG 0.79 mIU/mL 6 Laboratory test 05/06/2017 [facility] Lipase 14 U/L N 11.0- 82.0 finding [address] [place] [address] [phone] Urinalysis Profile 05/06/2017 [facility] Urine Color Yellow N [address] [place] [address] [phone] Urine Appearance Clear N Urine Specific [place] 1.012 N 1.010-1.030 Urine pH 6.0 N 5-9 Urine Urobilinogen Negative N Negative Urine Ketones 1+ Abnormal Negative Urine Protein Negative N Negative Urine Leukocytes Negative N Negative Urine Blood Negative N Negative Urine Nitrite Negative N Negative Urine Bilirubin Negative N Negative Urine Glucose Negative N Negative Comp Metabolic Panel 05/06/2017 [facility] Sodium 136 mmol/L N 133-145 [address] [place] [address] [phone] Potassium 3.5 mmol/L N 3.5-5.0 Chloride 105 mmol/L N 101-111 Co2 Carbon Dioxide 22 mmol/L N 22-32 Anion Gap 9 mmol/L N 2-11 Glucose 81 mg/dL N 70-100 Blood Urea Nitrogen 8 mg/dL N 6-24 Creatinine 0.62 mg/dL N 0.51-0.95 BUN/Creatinine Ratio 12.9 N 8-20 Calcium 9.0 mg/dL N 8.6-10.3 Total Protein 7.5 g/dL N 6.4-8.9 Albumin 3.9 g/dL N 3.2-5.2 Globulin 3.6 g/dL N 2-4 Albumin/Globulin Ratio 1.1 N 1-3 Total Bilirubin 0.30 mg/dL N 0.2-1.0 Alkaline Phosphatase 39 U/L N 34-104 Alt 12 U/L N 7-52 Ast 18 U/L N 13-39 Egfr Non- 124.0 N >60 Egfr 159.5 N >60 7 Laboratory test 05/06/2017 [facility] Partial 26.3 seconds N 26.0-36.[address] [place] [address] PTT [phone] HCG < 0.60 mIU/mL N 8 Inr/Protime 05/06/2017 [facility] Inr 0.94 N 0.89-1.[address] [place] [address] [phone] CBC Auto Diff 05/06/2017 [facility] White Blood 9.9 10^3/uL N 3.5-10.[address] [place] [address] [phone] Red Blood Count 4.25 10^6/uL N 4.0-5.4 Hemoglobin 12.0 g/dL N 12.0-16.0 Hematocrit 36 % N 35-47 Mean Corpuscular Volume 85 fL N 80-97 Mean Corpuscular Hemoglobin 28 pg N 27-31 Mean Corpuscular HGB Conc 33 g/dL N 31-36 Red Cell Distribution Width 14 % N 10.5-15 Platelet Count 196 10^3/uL N 150-450 Mean Platelet Volume 10 um3 N 7.4-10.4 Abs Neutrophils 6.6 10^3/uL N 1.5-7.7 Abs Lymphocytes 2.5 10^3/uL N 1.0-4.8 Abs Monocytes 0.8 10^3/uL N 0-0.8 Abs Eosinophils 0.1 10^3/uL N 0-0.6 Abs Basophils 0 10^3/uL N 0-0.2 Abs Nucleated RBC 0.01 10^3/uL N Granulocyte % 66.5 % N 38-83 Lymphocyte % 24.8 % Low 25-47 Monocyte % 7.9 % N 1-9 Eosinophil % 0.6 % N 0-6 Basophil % 0.2 % N 0-2 Nucleated Red Blood Cells % 0.1 N Ua Routine 11/05/2016 [facility] Ua Specific [place] 1.005 Ua PH 7 Ua Color yellow Ua Appera cloudy Ua WBC trace Ua Protein neg Ua Glucose normal Ua Ketones neg Ua Bilirubin neg Ua Urobilinogen normal Ua Nitrite neg Ua Occult Blood neg Surgical 09/18/2014 [facility] S RUN DATE: [address] 09/26/ <[place] [address] NOTE> [phone] Laboratory test 09/18/2014 [facility] Urine Negative N Negative [address] [place] [address] [phone] 1 SEE RESULT BELOW Name: NAVEED BOOTH : [address]: Kvng Chiu MD Acct: [id number] Unit: [id number] AGE: 22 Location: OR Re11/08/17 SEX: F Status: LAUREN MEYERS SPEC: [id number] ZAID: 11/08/[address]: Kvng Chiu MD REQ: [id number] RECD: 11/08/17 STATUS: SOUT _ ORDERED: LEVEL 3 FINAL DIAGNOSIS Vermiform appendix, appendectomy: -- Severe acute suppurative appendicitis with periappendicitis. PRE-OPERATIVE DIAGNOSIS Appendicitis. GROSS DESCRIPTION The specimen is received in formalin labeled, Appendix, and consists of a 7.5 by up to 1.0 cm appendix with moderate attached mesoappendix. The serosa is smooth to focally shaggy garcia-plata with a few focal fibromembranous adhesions and scant garcia-white fibropurulent exudate. The lumen measures up to 0.3 cm and contains a possible fecalith measuring up to 0.3 cm. The mucosa is glistening garcia-white with scant focal hemorrhage and the wall thickness measures up to 0.2 cm. General Office Associate sections, one cassette. Signed (signature on file) Amilcar Morgan MD [id number] END OF REPORT * ML=Testing performed at Main Lab DEPARTMENT OF PATHOLOGY, [address] [place] [address] Amilcar Morgan M.D. Director [facility] # [id number] 2 SEE RESULT BELOW Name: NAVEED BOOTH : [address]: Kvng Chiu MD Acct: [id number] Unit: [id number] AGE: 22 Location: OR Re11/08/17 SEX: F Status: DEP SDC SPEC: [id number] ZAID: 11/08/17 [facility] [address]: Lexi TAM REQ: [id number] RECD: 11/08/17 STATUS: MAURISIO ENRIQUEZ DR: Ricardo Bryson MD _ SOURCE: URINE SPDESC: ORDERED: Urine Culture Procedure Result Reported Site Urine Culture Final 11/09/17- 1310 ML No growth of clinically significant organisms * ML - MAIN LAB ([facility]) . END OF REPORT * ML=Testing performed at Main Lab DEPARTMENT OF PATHOLOGY, [address] [place] [address] Amilcar Morgan M.D. Director [facility] # [id number] 3 [facility] Severe Sepsis and Septic Shock Management Bundle Measure requires all lactic acids initially measuring >2.0 mmol/L be repeated. 4 Because ethnic data is not always readily available, this report includes an eGFR for both -Americans and non- Americans. The National Kidney Disease Education Program (NKDEP) does not endorse the use of the MDRD equation for patients that are not between the ages of 18 and 70, are , have extremes of body size, muscle mass, or nutritional status, or are non- or non-. According to the National Kidney Foundation, irrespective of diagnosis, the stage of the disease is based on the level of kidney function: Stage Description GFR(mL/min/1.73 m(2)) 1 Kidney damage with normal or decreased GFR 90 2 Kidney damage with mild decrease in GFR 60-89 3 Moderate decrease in GFR 30-59 4 Severe decrease in GFR 15-29 5 Kidney failure <15 (or dialysis) 5 Acute inflammation: >10.00 6 <5.0 Negative 5.0 - 25.0 Indeterminate (Repeat testing recommended after 72 hours) >25.0 Positive Perimenopausal women can display HCG levels of up to 20 mIU/mL 7 Because ethnic data is not always readily available, this report includes an eGFR for both -Americans and non- Americans. The National Kidney Disease Education Program (NKDEP) does not endorse the use of the MDRD equation for patients that are not between the ages of 18 and 70, are , have extremes of body size, muscle mass, or nutritional status, or are non- or non-. According to the National Kidney Foundation, irrespective of diagnosis, the stage of the disease is based on the level of kidney function: Stage Description GFR(mL/min/1.73 m(2)) 1 Kidney damage with normal or decreased GFR 90 2 Kidney damage with mild decrease in GFR 60-89 3 Moderate decrease in GFR 30-59 4 Severe decrease in GFR 15-29 5 Kidney failure <15 (or dialysis) 8 <5.0 Negative 5.0 - 25.0 Indeterminate (Repeat testing recommended after 72 hours) >25.0 Positive Perimenopausal women can display HCG levels of up to 20 mIU/mL 9 RUN DATE: 09/26/14 [facility] LAB LIVE PAGE 1 RUN TIME: [address] [place] [address] Specimen Inquiry Name: NAVEED BOOTH : [address]: Mukesh Howard MD Acct: [id number] Unit: [id number] AGE: 19 Location: OR Re09/18/14 SEX: F Status: [facility] SPEC: [id number] ZAID: 09/18/1430 [facility] DR: Mukesh Howard MD REQ: [id number] RECD: 09/18/14-6107 STATUS: SOUT _ ORDERED: Decal, LEVEL III/2 FINAL DIAGNOSIS Bone, left foot, excision: -- Benign bone with no significant pathologic abnormalities. PRE-OPERATIVE DIAGNOSIS Bunion left foot. GROSS DESCRIPTION The specimen is received in formalin labeled Naveed Booth, Bunion Left Foot and consists of a 2.5 x 1.1 x 0.2 cm. garcia-pink irregular portion of bone. The specimen is submitted entirely in one cassette following decalcification. MICROSCOPIC DESCRIPTION Signed (signature on file) Claritza Banda MD 1434 END OF REPORT * ML=Testing performed at Main Lab DEPARTMENT OF PATHOLOGY, [address] [place] [address] Amilcar Morgan M.D. Director [facility] # [id number] 10 If is still suspected, please repeat test after 48 to 72 hours. This test detects intact HCG only and is indicated for the early detection of . Procedures Date Code Description Status 11/08/2017 49428 Laparoscopy, Surgical, Appendectomy Completed 06/11/2017 51584 Diffusing Capacity Completed 06/11/2017 00615 Plethysmography Determination Lung Volumes & Per Airway Completed Resist 06/11/2017 79358 Pulmonary Function><Bronchodil Completed 05/14/2017 50388 Short Arm Cast Application Completed 05/07/2017 50695 CLST TRMT Distal Radial FX Completed 10/31/2014 44555 Rad Exam; Foot Comp Completed 10/03/2014 98082 Rad Exam; Foot Comp Completed 10/03/2014 13489 Short Leg Cast Completed 09/18/2014 31096 Correction, Hallux Valgus (bunion) w/ Metatarsal Osteotomy Completed 09/18/2014 92248 Correction, Hallux Valgus (bunion) w/ Metatarsal Osteotomy Completed 02/23/2014 52051 Rad Exam; Foot Comp Completed 02/23/2014 79194 Rad Exam; Foot Comp Completed Encounters Type Date Location Provider Dx Diagnosis Office Visit 11/12/2017 [facility] Juli Gusman, Z00.00 Encntr for general 9:10a Medicine - [place] MICROBIOLOGY LAB TECHNICIAN adult medical exam Rd w/o abnormal findings K59.00 Constipation, unspecified Office Visit 11/08/2017 7:00a Surgical Kvng PTisha K35.80 Unspecified [facility] Chiu MD, appendicitis FACS Office Visit 04/17/2017 7:30a Pulmonology And Gregoria J30.9 Allergic rhinitis, [facility] MD Eli unspecified [facility] R05 Cough R06.2 Wheezing Office Visit 04/09/2017 10:30a [facility] Internal Susan J30.9 Allergic rhinitis, Medicine - Kendra Bryson unspecified [place] J45.30 Mild persistent asthma, uncomplicated Office Visit 03/06/2017 11:20a [facility] Internal Brenda Berger, R05 Cough Medicine - [facility] Abie Office Visit 11/05/2016 10:00a [facility] Internal Alfie Alba, Z00.00 Encntr for Medicine - [place] MICROBIOLOGY LAB TECHNICIAN general adult Rd medical exam w/o abnormal findings Z23 Encounter for immunization Z79.3 MCC (current) use of hormonal contraceptives R30.0 Dysuria N39.0 Urinary tract infection, site not specified Z11.1 Encounter for screening for respiratory tuberculosis Office Visit 06/10/2016 3:20p Deanna Mayorga M20.12 Hallux valgus Services Of Kendra Howard (acquired), left C.M.A. foot Office Visit 04/25/2016 9:40a Orthopedic Tasha Roberson M20.12 Hallux valgus Services Of [facility] (acquired), left C.M.A. foot Z47.89 Encounter for other orthopedic aftercare Office Visit 08/14/2015 1:50p Deanna Mayorga Z47.89 Encounter for Services Of Kendra Howard other orthopedic C.M.A. aftercare Office Visit 02/20/2015 2:50p Deanna Mayorga 735.0 Hallux Valgus Services Of Kendra Howard Acquired C.M.A. V58.78 Aftercare Following Surgery Of The Musculoskeletal Sys, [facility] Office Visit 04/13/2014 9:45a Orthopedic Mukesh Howard 735.0 Hallux Valgus Services Of Najma Gardner Acquired Office Visit 02/23/2014 2:30p Orthopedic Mukesh Howard 735.0 Hallux Valgus Services Of Najma Gardner Acquired Office Visit 12/16/2011 2:00p Orthopedic Mukesh Howard 735.0 Hallux Valgus Services Of C.M.A. M.D. Acquired Plan of Treatment Future Appointment(s):11/16/2018 9:00 am - Meenakshi Ham MD at [facility] Internal Medicine [facility]10/19/2018 - Meenakshi Ham, MDM26.602 Left temporomandibular joint disorder, unspecifiedNew Medication:Cyclobenzaprine HCL 10 mg - 1 by mouth at nightFollow up:Take advil 600mg every 6 hours as needed please do bloodwork for physical prior to your visit
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
[2018-11-08] MEDS ORDERED: Ondansetron ODT TAB* 4 MG PO ONE (20:42)
[2018-11-08 21:02] VITALS: BP 121/76
== END 2018-11-08 21:01 | disposition home or self-care (01) ==
LOC: ED 18:54
DX: S09.90XA Unspecified injury of head, initial encounter (principal); V48.5XXA Car driver injured in noncollision transport accident in traffic accident, initial encounter; Y92.410 Unspecified street and highway as the place of occurrence of the external cause
CPT/HCPCS: 70450; 99282; A9270-GY

== ENCOUNTER 2019-05-16 21:46 | Emergency (ER) | payer OTHER ==
--- NOTE | 2019-05-16 22:56 | ED ---
Upper Extremity Pain - HPI Summary HPI Summary: Patient complains of pain to right wrist after mechanical fall today. Denies any other pain injury or symptoms. - History of Current Complaint Chief Complaint: EDExtremityUpper Stated Complaint: RT WRIST INJURY PER PT Time Seen by Provider: 05/16/19 22:47 Hx Obtained From: Patient Hx Last Menstrual Period: iud Mechanism Of Injury: Fall From A Standing Position Onset/Duration: Started Hours Ago Timing: Constant Severity Initially: Moderate Severity Currently: Moderate Pain Location: Wrist Character: Aching, Throbbing Aggravating Factor(s): Movement Alleviating Factor(s): Nothing Associated Signs & Symptoms: Positive: Negative - Allergies/Home Medications Allergies/Adverse Reactions: Allergies Allergy/AdvReac Type Severity Reaction Status Date / Time No Known Allergies Allergy Verified 05/16/19 21:49 PMH/Surg Hx/FS Hx/Imm Hx Endocrine/Hematology History: Denies: Hx Diabetes, Hx Thyroid Disease Cardiovascular History: Denies: Hx Hypercholesterolemia, Hx Hypertension, Hx Peripheral Vascular Disease History: Denies: Hx Renal Disease Musculoskeletal History: Denies: Hx Arthritis, Hx Rheumatoid Arthritis, Hx Osteoporosis Sensory History: Reports: Hx Contacts or Glasses - GLASSES Denies: Hx Cataracts, Hx Glaucoma, Hx Hearing Aid Opthamlomology History: Reports: Hx Contacts or Glasses - GLASSES Denies: Hx Cataracts, Hx Glaucoma Neurological History: Denies: Hx Headaches, Hx Seizures, Hx Transient Ischemic Attacks (TIA) Psychiatric History: Denies: Hx Anxiety, Hx Depression - Surgical History Surgery Procedure, Year, and Place: foot surgery and appy Infectious Disease History: No Infectious Disease History: Denies: Hx Clostridium Difficile, Hx Hepatitis, Hx Human Immunodeficiency Virus (HIV), Hx of Known/Suspected MRSA, Hx Shingles, Hx Tuberculosis, Hx Known/ Suspected VRE, Hx Known/Suspected VRSA, History Other Infectious Disease, Traveled Outside the [place] in Last 30 Days - Family History Known Family History: Positive: Cardiac Disease - Social History Alcohol Use: None Hx Substance Use: No Substance Use Type: Reports: Marijuana Hx Tobacco Use: No Smoking Status (MU): Never Smoked Tobacco Review of Systems Constitutional: Negative Eyes: Negative ENT: Negative Cardiovascular: Negative Respiratory: Negative Gastrointestinal: Negative Genitourinary: Negative Musculoskeletal: Other Skin: Negative Neurological: Negative Psychological: Normal All Other Systems Reviewed And Are Negative: Yes Physical Exam - Summary Physical Exam Summary: No swelling, erythema, ecchymosis, deformity noted to right wrist. No snuffbox tenderness. Normal exam of right hand and elbow. Triage Information Reviewed: Yes Vital Signs On Initial Exam: Initial Vitals Temp Pulse Resp BP Pulse Ox 98.7 F 93 16 129/94 99 05/16/19 21:49 05/16/19 21:49 05/16/19 21:49 05/16/19 21:49 05/16/19 21:49 Vital Signs Reviewed: Yes Appearance: Positive: Well-Appearing Skin: Positive: Warm Head/Face: Positive: Normal Head/Face Inspection Eyes: Positive: Normal Neck: Positive: Supple Respiratory/Lung Sounds: Positive: Clear to Auscultation Cardiovascular: Positive: Normal Abdomen Description: Positive: Nontender Musculoskeletal: Positive: Normal Neurological: Positive: Normal Psychiatric: Positive: Normal AVPU Assessment: Alert - Pease Coma Scale Best Eye Response: 4 - Spontaneous Best Motor Response: 6 - Obeys Commands Best Verbal Response: 5 - Oriented Coma Scale Total: 15 Diagnostics - Vital Signs Vital Signs Temp Pulse Resp BP Pulse Ox 05/16/19 21:49 98.7 F 93 16 129/94 99 - Laboratory Lab Statement: Any lab studies that have been ordered have been reviewed, and results considered in the medical decision making process. Course/Dx - Course Course Of Treatment: Patient complains of pain to right wrist after mechanical fall today. Denies any other pain injury or symptoms. Vital signs within normal limits. X-ray negative for fracture. Prefab wrist brace applied by nurse. - Diagnoses Provider Diagnoses: Right wrist sprain Discharge - Sign-Out/Discharge Documenting (check all that apply): Patient Departure Patient Received Moderate/Deep Sedation with Procedure: No - Discharge Plan Condition: Stable Disposition: HOME Patient Education Materials: Wrist Sprain (ED) Referrals: Susan Bryson MD [Primary Care Provider] - Additional Instructions: Ice, rest and ibuprofen for right wrist pain. Use right hand as tolerated. Symptoms should improve within a week. If symptoms do not improve follow-up with orthopedics Dr. Sen for further evaluation. - Billing Disposition and Condition Condition: STABLE Disposition: Home
[2019-05-16 23:15] VITALS: BP 119/77
== END 2019-05-16 23:13 | disposition home or self-care (01) ==
LOC: ED 21:46
DX: S63.501A Unspecified sprain of right wrist, initial encounter (principal); W19.XXXA Unspecified fall, initial encounter; Y92.9 Unspecified place or not applicable
CPT/HCPCS: 99282